=== PATIENT | male | born 1990 | race Two or more races ===

== ENCOUNTER 2019-01-24 11:13 | Emergency (ER) | payer BC ==
--- NOTE | 2019-01-24 11:23 | EDM.PDOC ---
ED HPI GENERAL MEDICAL PROBLEM - General Chief Complaint: Chest Pain Stated Complaint: [facility] Time Seen by Provider: 01/24/19 11:21 Source of Information: Reports: Patient, RN Notes Reviewed History Limitations: Reports: No Limitations - History of Present Illness INITIAL COMMENTS - FREE TEXT/NARRATIVE: Patient is a 28-year-old male who presents to the ED via [facility] for the evaluation of chest pain. The patient states that he awoke at 9 AM with chest pain. He states that there was also some pain that radiated down his left arm to his fingertips. He states this to be a sharp tingling pain down his left arm. The patient states that he didn't do any lifting or movements last night that would have aggravated this. He does admit to drinking 4 or 5 beers as well last night. He denies any further drug use. He states he did not take any pain medications for this at home because he did not have any at this time. The [facility] did end up giving him 10 mg of morphine in route to the ED. The patient states that this has helped his pain. He denies being sick recently, denies fever/chills, nausea/vomiting/diarrhea/shortness of breath, however he states that he has been somewhat constipated over the last 2- 3 days. Treatments MANAGER LICENSING: Reports: Aspirin, Nitroglycerin, Other (see below) Other Treatments MANAGER LICENSING: morphine Chest Pain Score (Numeric/FACES): 7 - Related Data Allergies Allergy/AdvReac Type Severity Reaction Status Date / Time No Known Allergies Allergy Verified 01/24/19 11:19 Home Meds: Home Meds Dextroamphetamine/Amphetamine [Adderall 20 mg Tablet] 20 mg PO DAILY 01/24/19 [ History] ED ROS GENERAL - Review of Systems Review Of Systems: See Below Constitutional: Reports: No Symptoms HEENT: Reports: No Symptoms Respiratory: Reports: No Symptoms Cardiovascular: Reports: Chest Pain (left lower chest) Endocrine: Reports: No Symptoms GI/Abdominal: Reports: No Symptoms : Reports: No Symptoms Musculoskeletal: Reports: Shoulder Pain (left shoulder), Arm Pain (left arm) Skin: Reports: No Symptoms Neurological: Reports: Tingling (left arm) Psychiatric: Reports: No Symptoms Hematologic/Lymphatic: Reports: No Symptoms Immunologic: Reports: No Symptoms ED EXAM, GENERAL - Physical Exam Exam: See Below Exam Limited By: No Limitations General Appearance: Alert, WD/WN, No Apparent Distress (pt is sleepy, but arousable d/t the morphine on board.) Eye Exam: Bilateral Eye: EOMI, Normal Inspection, PERRL Ears: Normal External Exam Nose: Normal Inspection Throat/Mouth: Normal Inspection, Normal Lips, Normal Oropharynx, Normal Voice, No Airway Compromise Head: Atraumatic, Normocephalic Neck: Normal Inspection, Supple, Non-Tender, Full Range of Motion Respiratory/Chest: No Respiratory Distress, Lungs Clear, Normal Breath Sounds, No Accessory Muscle Use, Chest Non-Tender Cardiovascular: Normal Peripheral Pulses, Regular Rate, Rhythm, No Murmur GI/Abdominal: Normal Bowel Sounds, Soft, Non-Tender, No Distention Back Exam: Normal Inspection, Full Range of Motion Extremities: Normal Inspection, Normal Range of Motion, Non-Tender, Normal Capillary Refill Neurological: Alert, Oriented, Normal Cognition, No Motor/Sensory Deficits Psychiatric: Normal Affect, Normal Mood Skin Exam: Warm, Dry, Intact, Normal Color, No Rash EKG INTERPRETATION EKG Date: 01/24/19 Time: 11:14 Rhythm: Other (sinus tach) Rate (Beats/Min): 120 Sutton: LAD-Left Sutton Deviation P-Wave: Present QRS: Normal ST-T: Normal QT: Normal Comparison: NA - No Prior EKG EKG Interpretation Comments: reviewed with Dr. Monroe, no ischemic changes Course - Vital Signs Last Recorded V/S: Last Vital Signs Temp 100.3 F 01/24/19 11:15 Pulse 123 H 01/24/19 11:15 Resp 16 01/24/19 11:15 BP 112/63 01/24/19 11:15 Pulse Ox 93 L 01/24/19 11:15 - Orders/Labs/Meds Orders: Active Orders 24 hr Category Date Time Status EKG Documentation Completion [RC] ASDIRECTED Care 01/24/19 11:45 Active Sodium Chloride 0.9% [Normal Saline] 1,000 ml Med 01/24/19 11:34 Ordered IV ASDIRECTED EKG 12 Lead [EK] Stat Ther 01/24/19 11:45 Ordered Medication Orders Sodium Chloride (Normal Saline) 1,000 mls @ 500 mls/hr IV ASDIRECTED ONE Stop: 01/24/19 13:33 Last Admin: 01/24/19 11:50 Dose: 500 mls/hr Labs: Laboratory Tests 01/24/19 01/24/19 Range/Units 11:44 11:44 WBC 10.99 H (4.23-9.07) K/mm3 RBC 5.29 (4.63-6.08) M/mm3 Hgb 16.6 (13.7-17.5) gm/L Hct 48.1 (40.1-51.0) % MCV 90.9 (79.0-92.2) fl MCH 31.4 (25.7-32.2) pg MCHC 34.5 (32.2-35.5) g/dl RDW Std Deviation 43.3 (35.1-43.9) fL Plt Count 136 L (163-337) K/mm3 MPV 10.8 (9.4-12.3) fl Neutrophils % (Manual) 80 H (40-60) % Band Neutrophils % 0 (0-10) % Lymphocytes % (Manual) 15 L (20-40) % Atypical Lymphs % 0 % Monocytes % (Manual) 4 (2-10) % Eosinophils % (Manual) 1 (0.8-7.0) % Basophils % (Manual) 0 L (0.2-1.2) Platelet Estimate Adequate RBC Morph Comment Normal Sodium 143 (136-145) mEq/L Potassium 3.8 (3.5-5.1) mEq/L Chloride 107 (98-107) mEq/L Carbon Dioxide 22 (21-32) mEq/L Anion Gap 17.8 H (5-15) BUN 16 (7-18) mg/dL Creatinine 1.1 (0.7-1.3) mg/dL Est Cr Clr Drug Dosing 84.46 mL/min Estimated GFR (MDRD) > 60 (>60) mL/min BUN/Creatinine Ratio 14.5 (14-18) Glucose 100 (74-106) mg/dL Calcium 8.7 (8.5-10.1) mg/dL Total Bilirubin 0.6 (0.2-1.0) mg/dL AST 21 (15-37) U/L ALT 45 (16-63) U/L Alkaline Phosphatase 80 (46-116) U/L Total Protein 7.7 (6.4-8.2) g/dl Albumin 4.0 (3.4-5.0) g/dl Globulin 3.7 gm/dL Albumin/Globulin Ratio 1.1 (1-2) Meds: Medications Generic Name Dose Route Start Last Admin Trade Name Anjel PRN Reason Stop Dose Admin Sodium Chloride 1,000 mls @ 500 mls/hr 01/24/19 11:34 01/24/19 11:50 Normal Saline IV 01/24/19 13:33 500 mls/hr ASDIRECTED ONE Administration Discontinued Medications Generic Name Dose Route Start Last Admin Trade Name Anjel PRN Reason Stop Dose Admin Ketorolac Tromethamine 30 mg 01/24/19 11:32 01/24/19 11:50 Toradol IVPUSH 01/24/19 11:33 30 mg ONETIME ONE Administration - Re-Assessments/Exams Free Text/Narrative Re-Assessment/Exam: 01/24/19 11:44 Patient presents to the ED for the evaluation of chest pain. History is somewhat limited as he is fairly sleepy from the 10 mg of morphine. He is able to tell me that when I pushed on his chest his pain was reproducible which raises a question of a costochondritis in nature. His temperature at time of triage was somewhat elevated at 100.3F. I did order a CBC, CMP and have ordered some IV fluids with 30 mg IV Toradol to see if this doesn't help him further. I'm questioning whether he is slightly hung over from drinking beers last night versus some costochondritis. His EKG is within normal limits. 01/24/19 13:04 Patient was re-assessed at bedside and he is still groggy, but states that he feels better. He is now just sore. Still awaiting CMP results. His WBC was slightly elevated at 10.99, which could just be a stress response. 01/24/19 13:19 Patient's metabolic panel has returned and his anion gap is slightly elevated at 17.9. Will let his IV fluids run in and discharge him home safely with general recommendations. Departure - Departure Time of Disposition: 13:19 Disposition: Home, Self-Care 01 Condition: Fair Clinical Impression: Costochondritis, acute Instructions: Costochondritis, [id number] Referrals: PCP,Unknown [Ordering Only Provider] - Forms: ED Department Discharge Additional Instructions: You have been evaluated in the ED today for your chest pain and your left arm pain. Your EKG was within normal limits, your labs did not show any acute abnormalities. You are NOT having a heart attack at this ED visit. You were slightly dehydrated, and did receive some IV fluids in correction of this. Please increase your oral fluid intake. This is likely due to costochondritis, which is an inflammation of your rib lining, this can also cause shooting pains into the left arm. You may take 400-600 mg of ibuprofen every 6 hours as needed for further pain relief. Do not exceed 3200 mg of ibuprofen in a 24-hour time span. Please return to the ED if your symptoms change or worsen. - My Orders Last 24 Hours: My Active Orders 01/24/19 11:34 Sodium Chloride 0.9% [Normal Saline] 1,000 ml IV ASDIRECTED 01/24/19 11:45 EKG Documentation Completion [RC] ASDIRECTED EKG 12 Lead [EK] Stat - Assessment/Plan Last 24 Hours: My Active Orders 01/24/19 11:34 Sodium Chloride 0.9% [Normal Saline] 1,000 ml IV ASDIRECTED 01/24/19 11:45 EKG Documentation Completion [RC] ASDIRECTED EKG 12 Lead [EK] Stat
[2019-01-24] MEDS ORDERED: Ketorolac 30 MG/ML SDV IVPUSH ONE (11:32)
[2019-01-24] MEDS ORDERED: Sodium Chloride 0.9% 1,000 ML IV ONE (11:34)
== END 2019-01-24 13:56 | disposition home or self-care (01) ==
LOC: JD.ED 11:13
DX: M94.0 Chondrocostal junction syndrome [Tietze] (principal)
CPT/HCPCS: 36415; 80053; 85007; 85027; 93005; 96361; 96374; 99285; J1885; J7040